=== PATIENT | male | born 1990 | race African-American/Black ===

== ENCOUNTER 2025-03-07 16:47 | Emergency (ER) | payer OTHER ==
[~2025-03-07] VITALS: Ht 170.2 cm; Wt 83.0 kg
[2025-03-07 17:19] VITALS: O2SAT 97
[2025-03-07] MEDS ORDERED: AMOX1TAB16 MT (18:12)
[2025-03-07] MEDS ORDERED: IBUP-2028 MT (18:12)
[2025-03-07 18:27] VITALS: BP 118/81; PULSE 70; RESP 18; TEMP 36.8; O2SAT 97
== END 2025-03-07 18:27 | disposition home or self-care (01) ==
LOC: ER 16:47
DX: K04.7 Periapical abscess without sinus (principal); Z79.899 Other long term (current) drug therapy
CPT/HCPCS: 99283